=== PATIENT | female | born 1930 | race Hispanic/Latino ===

== ENCOUNTER → 2018-02-10 | Outpatient (CLI) | payer OTHER ==
[~2018-02-10] MED LIST: AMLO5TAB2 PO; ATOR10 PO; CARV12.511 PO; CLOP75TA14 PO; METF10004 PO; VALS320T2 PO
== END ==
LOC: RAH 09:24
PROVIDERS: ATTEND Internal Medicine
DX: M19.011 Primary osteoarthritis, right shoulder (principal)
CPT/HCPCS: 73030